=== PATIENT | male | born 1995 | race African-American/Black ===

== ENCOUNTER 2017-02-22 17:35 | Emergency (ER) | payer BC ==
[2016-08-25 14:31] VITALS: BP 110/56
[~2017-02-22] VITALS: Ht 170.2 cm; Wt 61.2 kg
[~2017-02-22 17:35] MED LIST: BENZ100C PO; LIDO20SO PO; PRED50TA PO
--- NOTE | 2017-02-22 18:31 | PHYS DOC ---
Past Medical History Past Medical History: No Pertinent History Past Surgical History: No Surgical History Alcohol Use: None Drug Use: None Adult General Chief Complaint Chief Complaint: SKIN PROBLEM HPI HPI Patient is a 21 year old male presents emergency department stating that he has rash on the inside of his right thigh. He states that he's had for a few days. He states that it's itching and irritated. He states that also has some dry skin noted. Patient denies any fever, chills or any nausea vomiting. He denies any new contact with any soaps laundry detergents or clothing that's not been warned. Difficult to breathing. He states that it does go up into his groin area. Review of Systems Review of Systems Constitutional: Denies fever or chills [] Eyes: Denies change in visual acuity, redness, or eye pain [] HENT: Denies nasal congestion or sore throat [] Respiratory: Denies cough or shortness of breath [] Cardiovascular: No additional information not addressed in HPI [] GI: Denies abdominal pain, nausea, vomiting, bloody stools or diarrhea [] : Denies dysuria or hematuria [] Musculoskeletal: Denies back pain or joint pain [] Integument: rash denies skin lesions [] Neurologic: Denies headache, focal weakness or sensory changes [] Endocrine: Denies polyuria or polydipsia [] Allergies Allergies Allergies Coded Allergies Type Severity Reaction Last Updated Verified No Known Drug Allergies 08/25/16 No Physical Exam Physical Exam Constitutional: Well developed, well nourished, no acute distress, non-toxic appearance. [] HENT: Normocephalic, atraumatic, bilateral external ears normal, oropharynx moist, no oral exudates, nose normal. [] Eyes: PERRLA, EOMI, conjunctiva normal, no discharge. [] Neck: Normal range of motion, no tenderness, supple, no stridor. [] Cardiovascular:Heart rate regular rhythm, no murmur [] Lungs & Thorax: Bilateral breath sounds clear to auscultation [] Skin: Warm, dry, no erythema, Patient with red rash noted to the inside of the right thigh. Patient also has scaly skin noted along those areas. No drainage or discharge noted from the site. Back: No tenderness Extremities: No tenderness, no cyanosis, no clubbing, ROM intact, no edema. [] Neurologic: Alert and oriented X 3, normal motor function, normal sensory function, no focal deficits noted. [] Psychologic: Affect normal, judgement normal, mood normal. [] Current Patient Data Vital Signs Vital Signs Date Time Temp Pulse Resp B/P (MAP) Pulse Ox O2 Delivery O2 Flow Rate FiO2 02/22/17 18:03 98.0 53 18 100 Room Air 98.0 EKG EKG [] Radiology/Procedures Radiology/Procedures [] Course & Med Decision Making Course & Med Decision Making Pertinent Labs and Imaging studies reviewed. (See chart for details) Recommended patient to use Benadryl 25 mg every 6 hours. He was instructed this medication will cause drowsiness. Also recommended Eucerin cream to the area. He 'll also be provided with prednisone to help with inflammation and irritation. Patient will be discharged home in stable condition signs symptoms to return back to emergency department as been provided. [] Dragon Disclaimer Dragon Disclaimer This electronic medical record was generated, in whole or in part, using a voice recognition dictation system. Departure Departure Impression: Primary Impression: Contact dermatitis Disposition: 01 HOME, SELF-CARE Condition: STABLE Referrals: NO PCP (PCP) Patient Instructions: Contact Dermatitis, [id number] Additional Instructions: Activity as tolerated. Benadryl 25 mg every 6 hours as needed for itching and irritation. This medication will cause drowsiness do not take any be alert and oriented. Medication as prescribed. Keep the area clean dry and cool. Eucerin cream may also help with the scaly part of the skin. Follow-up the primary care physician in the next 5-7 days. Return back to emergency department sign symptoms become worse. Scripts Prednisone (PREDNISONE) 20 Mg Tablet 40 MG PO DAILY, #14 TAB Prov: VIVIANA EGAN APRN 02/22/17 VIVIANA EGAN APRN February 22, 2017 18:31
[2017-02-22] MEDS ORDERED: PRED20TA PO (18:38)
== END 2017-02-22 18:41 | disposition home or self-care (01) ==
LOC: ER 18:05
DX: L25.9 Unspecified contact dermatitis, unspecified cause (principal)
CPT/HCPCS: 99283

== ENCOUNTER 2021-07-03 17:51 | Emergency (ER) | payer BC ==
[~2021-07-03] VITALS: Ht 177.8 cm; Wt 64.8 kg
[~2021-07-03 17:51] MED LIST changes: +PRED20TA PO
--- NOTE | 2021-07-03 18:26 | PHYS DOC ---
Past Medical History Past Medical History: No Pertinent History (ELISHAJAZLYN [employer]IX[employer]) Past Surgical History: No Surgical History (ELISHAJAZLYN Alvarez [employer]) Smoking Status: Current Every Day Smoker Additional Information: smokes 1 cigar daily Alcohol Use: Rarely Drug Use: None Social History Narrative: occasional use (JAZLYN TELLO Antonio [employer]) General Adult EDM: Chief Complaint: ABSCESS HPI: HPI: Patient is a 25 year old male who presents to the ED today with left buttock abscess, symptoms began on Thursday last week. Patient denies any fever. (JAZLYN TELLO [employer]ER) Review of Systems: Review of Systems: Constitutional: Denies fever or chills. [] Musculoskeletal: Denies back pain or joint pain. [] Integument: Reports left buttock abscess Neurologic: Denies headache, focal weakness or sensory changes. [] Psychiatric: Denies depression or anxiety. [] (ELISHAJAZLYN [employer]ER) Heart Score: C/O Chest Pain: N/A Risk Factors: Risk Factors: DM, Current or recent (<one month) smoker, HTN, HLP, family history of CAD, obesity. Risk Scores: Score 0 - 3: 2.5% MACE over next 6 weeks - Discharge Home Score 4 - 6: 20.3% MACE over next 6 weeks - Admit for Clinical Observation Score 7 - 10: 72.7% MACE over next 6 weeks - Early Invasive Strategies (JAZLYN TELLO Antonio [employer]) Allergies: Allergies: Allergies Coded Allergies Type Severity Reaction Last Updated Verified No Known Drug Allergies 07/03/21 No (JAZLYN TELLO Antonio [employer]) Physical Exam: PE: Constitutional: Well developed, well nourished, no acute distress, non-toxic appearance. [] Skin: Left buttock with an indurated area roughly 4 x 4 cm with erythema, warmth and fluctuance. The area is also tender to touch. Back: No tenderness, no CVA tenderness. [] Extremities: No tenderness, no cyanosis, no clubbing, ROM intact, no edema. [] Neurologic: Alert and oriented X 3, normal motor function, normal sensory function, no focal deficits noted. [] Psychologic: Affect normal, judgement normal, mood normal. [] (ELISHAJAZLYN [employer]ER) Current Patient Data: Vital Signs: Vital Signs Date Time Temp Pulse Resp B/P (MAP) Pulse Ox O2 Delivery O2 Flow Rate FiO2 07/03/21 18:02 98.9 76 16 138/64 (88) 100 Room Air 98.9 (JAZLYN TELLO APRN) EKG: EKG: [] (JAZLYN TELLO APRN) Radiology/Procedures: Radiology/Procedures: Indication: abscess Procedure: The patient was positioned appropriately. Local anesthesia was 1% of lidocaine with epinephrine patient unable to tolerate not being medicine. An incision was then made over the apex of the lesion with an 11 blade and mild amount of bloody yellow purulent material was expressed, there is still more pus to be drained from this abscess, patient completely was unable to tolerate any further expression of pus from the abscess. Wound was covered with nonstick dressing The patient tolerated the procedure poorly Complications: none.[] (JAZLYN TELLO APRN) Course & Med Decision Making: Course & Med Decision Making Pertinent Labs and Imaging studies reviewed. (See chart for details) This is a 25-year-old male patient with a left buttock abscess that was drained by me as noted in procedures, patient was unable to tolerate drainage, the amount of pus left. Wound care instructions and return precautions provided to patient. Tetanus updated. Discharged on cephalexin and Bactrim. Instructed to return to the ED if wound condition gets worse. Follow-up with general surgery as well as PCP. (JAZLYN TELLO APRN) Course & Med Decision Making I was the Attending physician on the above date of service of this patient. This patient was evaluated, examined, treated, and dispositioned from the emergency department by the mid-level practitioner. Although I was working at the time , no assistance was requested. Electronically signed, Derick Burnham DO (DERICK BURNHAM DO) Mehdi Disclaimer: Mehdi Disclaimer: This electronic medical record was generated, in whole or in part, using a voice recognition dictation system. (JAZLYN TELLO APRN) Departure Departure Impression: Primary Impression: Abscess of buttock, left Additional Impression: Cellulitis of buttock, left Disposition: HOME / SELF CARE / HOMELESS Condition: STABLE Referrals: NO PCP (PCP) JUSTIN CHEN MD Follow-up in 2 weeks Patient Instructions: Abscess, Care After Additional Instructions: You have an abscess on your buttock that was drained in the ED. Please apply warm compresses to the area. Please take the prescribed antibiotics until completed. Please come back to the ED at any point wound condition worsens. Follow-up with your primary care doctor as well as the provided general surgeon in 2 weeks Scripts Hydrocodone/Acetaminophen (Hydrocodone-Acetamin 10-325 mg) 1 Each Tablet 0.5 EACH PO Q4-6HRS PRN for PAIN, #14 TAB Prov: JAZLYN TELLO APRN 07/03/21 Hydrocodone Bit/Acetaminophen (HYDROCODONE-APAP 5-325 ) 1 Tab Tablet 1 TAB PO PRN Q6HRS PRN for PAIN, #18 TAB 0 Refills Prov: JAZLYN TELLO APRN 07/03/21 Sulfamethoxazole/Trimethoprim (BACTRIM DS TABLET) 1 Each Tablet 1 TAB PO BID for 10 Days, #20 TAB 0 Refills Prov: JAZLYN TELLO APRN 07/03/21 Cephalexin (CEPHALEXIN) 500 Mg Tablet 1 TAB PO TID, #30 TAB Prov: JAZLYN TELLO APRN 07/03/21 JAZLYN TELLO APRN Jul 03, 2021 18:26 DERICK BURNHAM DO Jul 04, 2021 01:36
[2021-07-03] MEDS ORDERED: DIPH,PERTUSS(ACELL),TET VAC/PF 0.5 ML SYRINGE. VAX IM ONE (18:30)
[2021-07-03] MEDS ORDERED: LIDOCAINE 1%/EPI 1:100,000 20 ML VIAL. INJ ONE (18:30)
[2021-07-03] MEDS ORDERED: SULF1TAB24 PO (19:00)
[2021-07-03] MEDS ORDERED: CEPH500T PO (19:00)
[2021-07-03] MEDS ORDERED: HYDR-2761 PO (19:00)
[2021-07-03 19:03] VITALS: BP 132/59
[2021-07-03] MEDS ORDERED: HYDR-2767 PO (19:36)
== END 2021-07-03 19:10 | disposition home or self-care (01) ==
LOC: ER 17:51
DX: L02.31 Cutaneous abscess of buttock (principal); F17.210 Nicotine dependence, cigarettes, uncomplicated
CPT/HCPCS: 10060; 90471; 90715; 99283; J3490

== ENCOUNTER 2021-09-24 18:46 | Emergency (ER) | payer BC ==
[~2021-09-24 18:46] MED LIST changes: +CEPH500T PO; +HYDR-2761 PO; +HYDR-2767 PO; +SULF1TAB24 PO
[2021-09-25] MEDS ORDERED: CEPH500T PO (05:20)
[2021-09-25] MEDS ORDERED: SULF1TAB24 PO (05:20)
[2021-09-25] MEDS ORDERED: TRAM-48 PO (05:51)
== END 2021-09-25 00:16 | disposition left against medical advice (07) ==
LOC: ER 18:46
DX: R51.9 Headache, unspecified (principal); Z53.21 Procedure and treatment not carried out due to patient leaving prior to being seen by health care provider

== ENCOUNTER 2021-09-25 01:50 | Emergency (ER) | payer BC ==
[~2021-09-25] VITALS: Ht 180.3 cm; Wt 63.6 kg
[2021-09-25] MEDS ORDERED: LIDOCAINE/EPI/TETRACAINE TOPICAL GEL 3 ML. TP ONE (05:00)
[2021-09-25] MEDS ORDERED: LIDOCAINE 1%/EPI 1:100,000 20 ML VIAL. INJ ONE (05:00)
[2021-09-25] MEDS ORDERED: CEPH500T PO (05:20)
[2021-09-25] MEDS ORDERED: SULF1TAB24 PO (05:20)
[2021-09-25] MEDS ORDERED: TRAM-48 PO (05:51)
--- NOTE | 2021-09-25 05:54 | PHYS DOC ---
Past Medical History Past Medical History: No Pertinent History Past Surgical History: No Surgical History Smoking Status: Current Every Day Smoker Alcohol Use: Occasionally Drug Use: None General Adult EDM: Chief Complaint: SKIN RASH/ABSCESS HPI: HPI: Patient is a 26 year old male presents with the chief complaint of rectal abscess. Onset 3 days ago progressively getting larger and painful. History of abscess. Patient started left over TMP/SMX x 1 day. Review of Systems: Review of Systems: Constitutional: Denies fever or chills. [] Eyes: Denies change in visual acuity. [] HENT: Denies nasal congestion or sore throat. [] Respiratory: Denies cough or shortness of breath. [] Cardiovascular: Denies chest pain or edema. [] GI: Denies abdominal pain, nausea, vomiting, bloody stools or diarrhea. [] : Denies dysuria. [] Musculoskeletal: Denies back pain or joint pain. [] Integument: Denies rash. [positive abscess] Neurologic: Denies headache, focal weakness or sensory changes. [] Endocrine: Denies polyuria or polydipsia. [] Lymphatic: Denies swollen glands. [] Psychiatric: Denies depression or anxiety. [] Heart Score: C/O Chest Pain: N/A Risk Factors: Risk Factors: DM, Current or recent (<one month) smoker, HTN, HLP, family history of CAD, obesity. Risk Scores: Score 0 - 3: 2.5% MACE over next 6 weeks - Discharge Home Score 4 - 6: 20.3% MACE over next 6 weeks - Admit for Clinical Observation Score 7 - 10: 72.7% MACE over next 6 weeks - Early Invasive Strategies Current Medications: Current Medications Medications (Trade) Dose Ordered Sig/[facility] Start Time Stop Time Status Last Admin Dose Admin Lidocaine/ Epinephrine (LIDOCAINE 1%-EPI 1:100,000 Multi-Dose) 20 ml 1X ONCE 09/25/21 05:00 09/25/21 05:01 DC 09/25/21 05:00 20 ML Tetracaine/ Epinephrine/ Lidocaine (Let (Zpvo-Woivfij-Zbuus) Gel) 3 ml 1X ONCE 09/25/21 05:00 09/25/21 05:01 DC 09/25/21 05:00 3 ML Allergies: Allergies: Allergies Coded Allergies Type Severity Reaction Last Updated Verified No Known Drug Allergies 07/03/21 No Physical Exam: PE: Constitutional: Well developed, well nourished, no acute distress, non-toxic appearance. [] HENT: Normocephalic, atraumatic, bilateral external ears normal, oropharynx moist, no oral exudates, nose normal. [] Eyes: PERRLA, EOMI, conjunctiva normal, no discharge. [] Neck: Normal range of motion, no tenderness, supple, no stridor. [] Cardiovascular:Heart rate regular rhythm, no murmur [] Lungs & Thorax: Bilateral breath sounds clear to auscultation [] Abdomen: Bowel sounds normal, soft, no tenderness, no masses, no pulsatile masses. [] Skin: Warm, dry, no erythema, no rash. [large abscess right buttocks 4x4 cm fluctuant] Back: No tenderness, no CVA tenderness. [] Extremities: No tenderness, no cyanosis, no clubbing, ROM intact, no edema. [] Neurologic: Alert and oriented X 3, normal motor function, normal sensory function, no focal deficits noted. [] Psychologic: Affect normal, judgement normal, mood normal. [] Current Patient Data: Vital Signs: Vital Signs Date Time Temp Pulse Resp B/P (MAP) Pulse Ox O2 Delivery O2 Flow Rate FiO2 09/25/21 03:30 99.3 80 16 140/74 (96) 98 Room Air 99.3 EKG: EKG: [] Radiology/Procedures: Radiology/Procedures: [] Course & Med Decision Making: Course & Med Decision Making Pertinent Labs and Imaging studies reviewed. (See chart for details) []i/d LET topical anesthesia lidocaine with epi approximately 5cc once anesthesia was achieved wound was cleaned with Betadine. 11 blade used placed a 1 cm incision. Large amount of pus expressed. Wound was drained. Flushed with NS. Packed with iodoform dressing placed by nursing. Rx tmp/smx keflex ultram Mehdi Disclaimer: Mehdi Disclaimer: This electronic medical record was generated, in whole or in part, using a voice recognition dictation system. Departure Departure Impression: Primary Impression: Abscess of buttock, left Disposition: HOME / SELF CARE / HOMELESS Condition: STABLE Referrals: NO PCP (PCP) Patient Instructions: Harper-Rectal Abscess Scripts Tramadol Hcl (ULTRAM) 50 Mg Tablet 1 TAB PO PRN Q6HRS PRN for pain MDD 4 Tablet(s) for 7 Days, #28 TAB 0 Refills Prov: JANET NELSON DO 09/25/21 Sulfamethoxazole/Trimethoprim (BACTRIM DS TABLET) 1 Each Tablet 1 TAB PO BID for 10 Days, #20 TAB 0 Refills Prov: JANET NELSON DO 09/25/21 Cephalexin (CEPHALEXIN) 500 Mg Tablet 1 TAB PO QID, #40 TAB Prov: JANET NELSNO DO 09/25/21 JANET NELSON DO Sep 25, 2021 05:54
[2021-09-25 07:22] VITALS: BP 115/58
== END 2021-09-25 07:28 | disposition home or self-care (01) ==
LOC: ER 01:50
DX: L02.31 Cutaneous abscess of buttock (principal); F17.200 Nicotine dependence, unspecified, uncomplicated
CPT/HCPCS: 10060; 99283; J3490